=== PATIENT | female | born 2000 | race Two or more races ===

== ENCOUNTER → 2024-10-15 | Outpatient (CLI) | payer MEDICAID, SELFPAY ==
--- NOTE | 2024-10-15 11:13 | XR_ITS ---
Examination: Scoliosis survey 2, views. Technique: AP standing thoracic, AP standing lumbar spine, two views. Exam date and time: October 15, 2024 1115 hours INDICATIONS: Scoliosis on clinical examination by physician this month Findings: Thoracic dextroscoliosis 10 degrees Lumbar levoscoliosis 5 degrees Intact osseous structures. No segmentation anomalies. Hip joint spaces well-maintained IMPRESSION: Scoliosis as above
== END | disposition home or self-care (01) ==
PROVIDERS: PCP Physician Assistant; Referring Provider Internal Medicine; Visit Provider Internal Medicine
DX: M41.86 Other forms of scoliosis, lumbar region (principal); M41.84 Other forms of scoliosis, thoracic region
CPT/HCPCS: 72082